=== PATIENT | male | born 1955 | race Caucasian/White ===

== ENCOUNTER 2016-10-19 14:44 | Emergency (ER) | payer BC ==
[~2016-10-19] VITALS: Ht 180.3 cm; Wt 80.7 kg
[~2016-10-19 14:44] MED LIST: ESOM40CA
--- NOTE | 2016-10-19 14:52 | NUR ---
IV ACCESSED TO RAC 18. BLOOD SAMPLE SENT TO LAB
--- NOTE | 2016-10-19 14:52 | NUR ---
MD BOND AT [facility]
--- NOTE | 2016-10-19 14:55 | NUR ---
PRESENTS SELF TO ED FOR ACUTE PALPITATION WITH CHEST PRESSURE; 10 X 1HOUR. PATIENT IS AAO3. APPEARS IN NO ACUTE DISTRESS, RESPIRATION EVEN AND UNLABORED. AFEBRILE. GOWNED PT AND CONNECTED TO TELE MONITOR
[2016-10-19] MEDS ORDERED: Magnesium 1GM/D5W 100ML PREMIX 200 ML IV ONE ×2 (14:58)
[2016-10-19] MEDS ORDERED: IV NS 0.9% 1,000 ML BAG IV ONE (15:00)
[2016-10-19 15:14] LABS: BASOPHILS # (AUTO) 0.1 /CMM (0.0-0.2); BASOPHILS % (AUTO) 1.6 % (0.0-2.0); EOSINOPHILS # (AUTO) 0.1 /CMM (0.0-0.7); EOSINOPHILS % (AUTO) 0.9 % (0.0-6.0); HEMATOCRIT 39 % (39-51); HEMOGLOBIN 12.8 g/dL (13.5-17.5); LYMPHOCYTES % (AUTO) 34.2 % (20.0-44.0); MEAN CORPUSCULAR HEMOGLOBIN 30 PG (26.0-33.0); MEAN CORPUSCULAR HGB CONC 33 g/dl (31.0-36.0); MEAN CORPUSCULAR VOLUME 90 fL (80-96); MONOCYTES # (AUTO) 0.4 /CMM (0.1-1.30); MONOCYTES % (AUTO) 6.3 % (2.0-12.0); NEUTROPHILS # (AUTO) 3.2 /CMM (1.8-8.9); PLATELET COUNT (AUTO) 174 /CMM (150-450); RDW COEFFICIENT OF VARIATION 12.2 (11.5-15.0); RED BLOOD CELL COUNT(AUTO) 4.29 MIL/uL (4.5-6.0); WHITE BLOOD COUNT (AUTO) 5.8 K/uL (4.3-11.0)
[2016-10-19] MEDS ORDERED: ASPIRIN 81 MG TAB.CHEW ONE (15:23)
[2016-10-19 15:25] LABS: CALCIUM, SERUM 9.1 mg/dL (8.5-10.1); CARBON DIOXIDE 29 mmol/L (21-32); CHLORIDE 106 mmol/L (98-107); CREATININE 1.2 mg/dL (0.6-1.3); GLUCOSE 98 mg/dL (74-106); POTASSIUM 3.7 mmol/L (3.5-5.1); SODIUM SERUM 144 mmol/L (136-145); UREA NITROGEN, BLOOD 20 mg/dL (7-18)
[2016-10-19 15:27] LABS: INR 1.08 (0.87-1.13); PROTHROMBIN TIME 11.2 SECS (9.5-12.7)
[2016-10-19] MEDS ORDERED: ASPIRIN 81 MG TAB.CHEW PO ONE (15:30)
[2016-10-19 15:31] LABS: ALANINE AMINOTRANSFERASE 23 U/L (12-78); ALBUMIN 4.3 g/dL (3.4-5.0); ALKALINE PHOSPHATASE 55 U/L (46-116); ASPARTATE AMINOTRANSFERASE 20 U/L (15-37); BILIRUBIN,DIRECT 0.1 mg/dL (0.0-0.2); BILIRUBIN,TOTAL 0.7 mg/dL (0.2-1.0); TOTAL PROTEIN, SERUM 7.8 g/dL (6.4-8.2); TROPONIN I < 0.017 ng/mL (0.00-0.056)
[2016-10-19] MEDS ORDERED: DILTIAZEM HCL 25 MG IV ONE (15:46)
[2016-10-19] MEDS ORDERED: ESOM40CA PO (15:48)
[2016-10-19] MEDS ORDERED: ASPI81TA2 PO (15:48)
[2016-10-19] MEDS ORDERED: AZIT250T6 PO (15:48)
[2016-10-19] MEDS ORDERED: LIOT25TA9 PO (15:48)
[2016-10-19] MEDS ORDERED: TEST5GEL2 TD (15:48)
[2016-10-19] MEDS ORDERED: GABA-534 PO (15:49)
[2016-10-19] MEDS ORDERED: DILTIAZEM HCL 25 MG IV IV ONE (16:00)
--- NOTE | 2016-10-19 16:24 | NUR ---
DR GARDUNO ON THE PHONE WITH DR WONG.
--- NOTE | 2016-10-19 16:35 | NUR ---
MD BOND AT BEDSIDE DISCUSSING PLAN OF CARE
[2016-10-19 18:22] VITALS: BP 135/91
--- NOTE | 2016-10-19 18:22 | NUR ---
Patient discharged to home in stable condition. Written and verbal after care instructions given. Patient verbalizes understanding of instruction.IV removed. Catheter intact and site benign. Pressure and 4x4 applied to site. No bleeding noted.
== END 2016-10-19 18:23 | disposition home or self-care (01) ==
LOC: ER 14:46
DX: I48.91 Unspecified atrial fibrillation (principal); K21.9 Gastro-esophageal reflux disease without esophagitis
CPT/HCPCS: 36415; 80048; 80076; 84484 ×2; 85025; 85730; 93005 ×2; 96365; 96374; 99291; A4606; J3475; J3490; J7030; Z7610

== ENCOUNTER 2017-04-23 15:22 | Inpatient (IN) | payer BC ==
[~2017-04-23] VITALS: Ht 177.8 cm; Wt 78.1 kg
[~2017-04-23 15:22] MED LIST changes: +ASPI-1169 PO; +AZIT250T13 PO; -ESOM40CA; +ESOM40CA PO; +GABA-534 PO; +LIOT25TA9 PO; +TEST5GEL2 TD
--- NOTE | 2017-04-23 15:22 | NUR ---
PT AMBULATORY TO ER BED 10. C/O CHEST PAIN, PALPITATION THAT STARTED WHILE DRIVING X 15 MINS. PT HAS HXC OF A FIB. GOWNED AND PLACED ON MONITOR. AFIB. AWAITING MD GARCIA.
--- NOTE | 2017-04-23 15:40 | NUR ---
IV LINE STARTED BLOOD DRAWN AND SENT TO LAB.
[2017-04-23] MEDS ORDERED: DILTIAZEM HCL 25 MG IV ONE ×3 (15:41→19:56)
[2017-04-23 15:47] LABS: BASOPHILS # (AUTO) 0.1 /CMM (0.0-0.2); MONOCYTES # (AUTO) 0.5 /CMM (0.1-1.30); RDW COEFFICIENT OF VARIATION 12.4 (11.5-15.0); WHITE BLOOD COUNT (AUTO) 8.5 K/uL (4.3-11.0)
[2017-04-23 15:50] LABS: BASOPHILS % (AUTO) 0.6 % (0.0-2.0); EOSINOPHILS % (AUTO) 0.4 % (0.0-6.0); HEMATOCRIT 37 % (39-51); HEMOGLOBIN 12.7 g/dL (13.5-17.5); LYMPHOCYTES # (AUTO) 1.6 /CMM (0.8-4.8); LYMPHOCYTES % (AUTO) 19.1 % (20.0-44.0); MEAN CORPUSCULAR HEMOGLOBIN 30 PG (26.0-33.0); MEAN CORPUSCULAR HGB CONC 34 g/dl (31.0-36.0); MEAN CORPUSCULAR VOLUME 88 fL (80-96); MONOCYTES % (AUTO) 6.4 % (2.0-12.0); NEUTROPHILS # (AUTO) 6.3 /CMM (1.8-8.9); NEUTROPHILS % (AUTO) 73.5 % (43.0-81.0); PLATELET COUNT (AUTO) 224 /CMM (150-450); RED BLOOD CELL COUNT(AUTO) 4.22 MIL/uL (4.5-6.0)
--- NOTE | 2017-04-23 15:55 | NUR ---
CALLED DR MARCELO WONG'S ANSWERING SERVICE, LEFT VOICEMAIL.
[2017-04-23 16:00] LABS: INR 1.09 (0.85-1.15)
[2017-04-23] MEDS ORDERED: DILTIAZEM HCL 50 MG IV IV ONE ×4 (16:00→20:00)
--- NOTE | 2017-04-23 16:01 | NUR ---
PT REFUSING CXR
[2017-04-23 16:02] LABS: CALCIUM, SERUM 9.6 mg/dL (8.5-10.1); CARBON DIOXIDE 29 mmol/L (21-32); CHLORIDE 105 mmol/L (98-107); CREATININE 1.2 mg/dL (0.6-1.3); GLUCOSE 101 mg/dL (74-106); POTASSIUM 4.6 mmol/L (3.5-5.1); SODIUM SERUM 142 mmol/L (136-145); UREA NITROGEN, BLOOD 20 mg/dL (7-18)
[2017-04-23 16:15] LABS: B-TYPE NATRIURETIC PEPTIDE 82 PG/ML (0-125); TROPONIN I < 0.017 ng/mL (0.00-0.056)
[2017-04-23] MEDS ORDERED: DILTIAZEM HCL 50 MG IV ONE (16:25)
[2017-04-23] MEDS ORDERED: APIXABAN 5 MG TABLET PO STA (17:15)
[2017-04-23] MEDS ORDERED: DILTIAZEM HCL CD 180 MG PO ONE ×2 (17:27→17:30)
[2017-04-23] MEDS ORDERED: ENOXAPARIN SODIUM 60 MG/0.6 ML DISP.SYRIN SQ ONE (19:00)
[2017-04-23] MEDS ORDERED: ENOXAPARIN SODIUM 80 MG/0.8 ML DISP.SYRIN SQ ONE (19:10)
--- NOTE | 2017-04-23 19:20 | NUR ---
CALLED [email or web address] RISK CONSULTING TREASURY DIRECTOR WAS PAGED.
[2017-04-23] MEDS ORDERED: LISI10TA5 PO (19:26)
[2017-04-23] MEDS ORDERED: DEXL60CA3 PO (19:26)
--- NOTE | 2017-04-23 20:50 | NUR ---
RN OPEN NOTES RECEIVED PATIENT FROM ER VIA [facility] WITH FAMILY AT BEDSIDE. A/O X4. NO SIGNS OF DISTRESS OR DISCOMFORT. BREATHING EVEN AND UNLABORED. ATTACHED PATIENT TO TELE MONITOR WITH AFIB 98 NOTED. IV ACCESS IN LAC, PATENT AND INTACT, NO SIGNS OF REDNESS OR INFILTRATION. ORIENTED PATIENT TO UNIT AND ROOM. BED IN LOW LOCKED POSITION WITH SIDE RAILS X2. CALL LIGHT WITHIN REACH. WILL CONTINUE TO MONITOR.
[2017-04-23 21:00] VITALS: BP 121/79
[2017-04-23] MEDS ORDERED: IV NS 0.9% 1,000 ML IV PRN (21:06)
[2017-04-23] MEDS ORDERED: MAG HYDROX/AL HYDROX/SIMETH 30 ML UDC PO PRN (21:30)
[2017-04-23] MEDS ORDERED: ONDANSETRON HCL/PF 4 MG/2 ML VIAL IVP PRN (21:30)
[2017-04-23] MEDS ORDERED: ACETAMINOPHEN 325 MG TABLET PO PRN (21:30)
[2017-04-23] MEDS ORDERED: HYDROCODONE/APAP 5/325MG 1 EACH TABLET PO PRN (21:30)
[2017-04-23] MEDS ORDERED: Z GUARD REMEDY 2 OZ OINT TP PRN (21:30)
[2017-04-23] MEDS: ENOXAPARIN SODIUM 80 MG/0.8 ML DISP.SYRIN SQ SCH (21:30)
[2017-04-23] MEDS ORDERED: MAGNESIUM HYDROXIDE 30 ML UDC PO PRN (21:30)
[2017-04-23 22:00] VITALS: BP 121/79
[2017-04-23] MEDS ORDERED: ZOLPIDEM TARTRATE 5 MG TABLET PO ONE (23:00)
--- NOTE | 2017-04-23 23:07 | NUR ---
RN NOTES ADMINISTERED AMBIEN 5MG AT PATIENT REQUEST FOR INSOMNIA. WILL CONTINUE TO MONITOR.
[2017-04-24] VITALS: BP 94/55
[2017-04-24 00:10] VITALS: BP 121/79
[2017-04-24 04:00] VITALS: BP_SYST 100; BP_SYST 96; BP_DIAS 58; BP_DIAS 61
--- NOTE | 2017-04-24 06:38 | NUR ---
RN CLOSING NOTES PATIENT RESTING IN BED, EASILY AROUSABLE. A/O X4. NO SIGNS OF DISTRESS OR DISCOMFORT. BREATHING EVEN AND UNLABORED. ON TELE MONITOR WITH SB 50 NOTED. IV ACCESS IN LAC WITH NS INFUSING, PATENT AND INTACT, NO SIGNS OF REDNESS OR INFILTRATION. ALL NEEDS MET. NO SIGNIFICANT CHANGES THROUGH THE NIGHT. BED IN LOW LOCKED POSITION WITH SIDE RAILS X2. CALL LIGHT WITHIN REACH. WILL ENDORSE TO AM SHIFT FOR NIKKY.
[2017-04-24 07:16] LABS: BASOPHILS % (AUTO) 0.4 % (0.0-2.0); EOSINOPHILS # (AUTO) 0.1 /CMM (0.0-0.7); EOSINOPHILS % (AUTO) 2.3 % (0.0-6.0); HEMATOCRIT 35 % (39-51); HEMOGLOBIN 12.2 g/dL (13.5-17.5); LYMPHOCYTES # (AUTO) 1.9 /CMM (0.8-4.8); LYMPHOCYTES % (AUTO) 47.3 % (20.0-44.0); MEAN CORPUSCULAR HEMOGLOBIN 32 PG (26.0-33.0); MEAN CORPUSCULAR HGB CONC 35 g/dl (31.0-36.0); MEAN CORPUSCULAR VOLUME 90 fL (80-96); MONOCYTES # (AUTO) 0.4 /CMM (0.1-1.30); MONOCYTES % (AUTO) 10.4 % (2.0-12.0); NEUTROPHILS # (AUTO) 1.6 /CMM (1.8-8.9); NEUTROPHILS % (AUTO) 39.6 % (43.0-81.0); PLATELET COUNT (AUTO) 189 /CMM (150-450); RDW COEFFICIENT OF VARIATION 13.5 (11.5-15.0); RED BLOOD CELL COUNT(AUTO) 3.84 MIL/uL (4.5-6.0)
[2017-04-24] MEDS ORDERED: LIOTHYRONINE SODIUM (25 MCG) 25 MCG TABLET PO SCH (07:30)
[2017-04-24 07:48] LABS: CALCIUM, SERUM 8.5 mg/dL (8.5-10.1); CREATININE 1.1 mg/dL (0.6-1.3); MAGNESIUM 2.2 mg/dL (1.8-2.4); PHOSPHORUS 3.9 mg/dL (2.5-4.9); POTASSIUM 4.2 mmol/L (3.5-5.1); THYROID STIMULATING HORMONE 0.749 uIU/mL (0.358-3.74)
--- NOTE | 2017-04-24 07:59 | NUR ---
TIME STUDY OBSERVER OPENING NOTES. PT RECEIVED A&0X3 RESTING IN BED. TELE SR 60. PT TOLERATING ROOM AIR WITHOUT SOB AND DENIES PAIN. PT WITH IVC AT L AC G#18 INTACT AND OPERATIONAL WITH NS75ML/HR. ENDORSED PT NPO, CONFIRMED DIET OK PER MD WALDEN. PT BED IN LOWEST LOCKED POSITION WITH HNADRAILSX2 AND CALL DAVIS WITHIN REACH. PT BRIEFED ON TODAY'S POC AND IS WITHOUT CONCERN OR COMPLAINT AT THIS TIME.
[2017-04-24 08:00] VITALS: BP 95/49
[2017-04-24] MEDS ORDERED: IV NS 0.9% 1,000 ML IV PRN (08:31)
[2017-04-24] MEDS: ENOXAPARIN SODIUM 80 MG/0.8 ML DISP.SYRIN SQ SCH (08:32)
[2017-04-24] MEDS ORDERED: LISINOPRIL (10MG) 10 MG TABLET PO SCH (09:00)
[2017-04-24] MEDS ORDERED: ASPIRIN 81 MG TAB.CHEW PO SCH (09:00)
[2017-04-24 11:32] VITALS: BP 121/65
--- NOTE | 2017-04-24 12:30 | NUR ---
MSRN D/C NOTES. PT PREPARED FOR D/C PER MD, PT TOLERATING ROOM AIR WITHOUT DISTRESS AND DENIES PAIN. PT IVC REMOVED AND NAD AT SITE. PT WITH ALL BELONGINGS AND DOCUMENT SIGNED. PT BRIEFED ON SOH D/C PACKET, EMERGENCY S/S AND IS VERBALIZING UNDERSTANDING, RESOURCES AND INTENT TO FOLLOW POC. PT REPORTING HAVING HAD A LONG CONVERSATION JUST PRIOR WITH MD MILLER.ALL NURSE DUTIES ATTENDED TO. PT IS WITHOUT CONCERN OR COMPLAINT AND IS GRATEFUL FOR CARE. PT AMBULATORY EXIT.
[2017-04-25] MEDS ORDERED: PANTOPRAZOLE 40 MG TABLET.DR PO SCH (07:30)
== END 2017-04-24 12:25 | disposition home or self-care (01) | DRG 308 ==
LOC: ER 15:23 → TELE 20:21 → MED 04-24 09:25
PROVIDERS: ADMIT Nurse Practitioner Acute Care; ATTEND Nurse Practitioner Acute Care
DX: I48.0 Paroxysmal atrial fibrillation (principal); N17.0 Acute kidney failure with tubular necrosis; D63.8 Anemia in other chronic diseases classified elsewhere; E03.9 Hypothyroidism, unspecified; K21.9 Gastro-esophageal reflux disease without esophagitis; M47.896 Other spondylosis, lumbar region; Z80.9 Family history of malignant neoplasm, unspecified; Z82.49 Family history of ischemic heart disease and other diseases of the circulatory system; G89.29 Other chronic pain; K66.0 Peritoneal adhesions (postprocedural) (postinfection); I70.8 Atherosclerosis of other arteries; I10 Essential (primary) hypertension; Z79.82 Long term (current) use of aspirin
CPT/HCPCS: 36415; 80048-TC; 80061-TC; 83735-TC; 83880; 84100-TC; 84443-TC; 84484-TC; 85025-TC; 85730-TC; 87081-TC; A4606; J1650; J3490; J7030; Z7610

== ENCOUNTER 2017-12-24 15:31 | Emergency (ER) | payer BC ==
[~2017-12-24] VITALS: Ht 177.8 cm; Wt 79.8 kg
[~2017-12-24 15:31] MED LIST changes: -AZIT250T13 PO; +DEXL60CA3 PO; -ESOM40CA PO; -GABA-534 PO; +LISI10TA5 PO
[2017-12-24 15:54] VITALS: BP 138/98
--- NOTE | 2017-12-24 15:57 | NUR ---
Pt states "Had AF earlier today took Flecainide but didnt wait for it to take effect I got nervous so I came" Denies any CP/SOB or any s/s EKG NSR. Pt for discharge ACI given-verbalized understanding. Home ambulatory Stable
[2018-01-15] MEDS ORDERED: DILT180C66 PO (10:41)
== END 2017-12-24 15:59 | disposition home or self-care (01) ==
LOC: ER 15:33
DX: I48.91 Unspecified atrial fibrillation (principal); K21.9 Gastro-esophageal reflux disease without esophagitis; F10.10 Alcohol abuse, uncomplicated; Y90.9 Presence of alcohol in blood, level not specified; Z79.82 Long term (current) use of aspirin
CPT/HCPCS: 99283; A4606; Z7610

== ENCOUNTER 2019-11-20 12:19 | Emergency (ER) | payer BC ==
[~2019-11-20] VITALS: Ht 177.8 cm; Wt 79.4 kg
[~2019-11-20 12:19] MED LIST changes: +DILT180C66 PO; +LIOT25TA13 PO; -LIOT25TA9 PO
--- NOTE | 2019-11-20 13:10 | NUR ---
PATIENT TAKEN TO CT.
--- NOTE | 2019-11-20 13:50 | NUR ---
PATIENT A/OX4, AMBULATORY WITH STEADY GAIT. NO DISTRESS NOTED. Patient discharged to home in stable condition. Written and verbal after care instructions given. Patient verbalizes understanding of instruction.
[2019-11-20 13:51] VITALS: BP 160/96
== END 2019-11-20 13:52 | disposition home or self-care (01) ==
LOC: ER 12:24
DX: S06.0X0A Concussion without loss of consciousness, initial encounter (principal); I10 Essential (primary) hypertension; I48.91 Unspecified atrial fibrillation; K21.9 Gastro-esophageal reflux disease without esophagitis; Z98.890 Other specified postprocedural states; Z79.899 Other long term (current) drug therapy; Z79.82 Long term (current) use of aspirin; W22.8XXA Striking against or struck by other objects, initial encounter; Y93.89 Activity, other specified; Y92.89 Other specified places as the place of occurrence of the external cause; Y99.8 Other external cause status
CPT/HCPCS: 70450-TC

== ENCOUNTER → 2020-11-17 | Emergency (ER) | payer BC ==
[~2020-11-17] VITALS: Ht 180.3 cm; Wt 77.1 kg
[~2020-11-17] MED LIST changes: +HYDROCODONE/APAP 5/325MG TABLET ONE; +IOHEXOL-350 100 ML VIAL IV ONE; +IV NS 0.9% 250 ML IV ONE; +LISI10TA29 PO; -LISI10TA5 PO
--- NOTE | 2020-11-17 19:20 | NUR ---
PATIENT BIBS C/O CHEST PAIN X3 DAYS. HX OF AFIB NOV 04 THEN CALF PAIN WHICH SUBSIDED NOW ON GOING CHEST PAIN 5/10 ACCOMPANIED BY N/V. 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 PATIENT AAO X 4, BREATHING EVEN AND UNLABORED. PATIENT WAS SEEN AND EXAMINED BY DR BARTH. PT ATTACHED TO MONITOR AND PULSE OX. WILL CONTINUE TO MONITOR AND CAARY OUT MD ORDERS.
[2020-11-17 19:58] LABS: BASOPHILS % (AUTO) 0.3 % (0.0-2.0); EOSINOPHILS % (AUTO) 1.1 % (0.0-6.0); HEMATOCRIT 36 % (39-51); HEMOGLOBIN 12.2 g/dL (13.5-17.5); MEAN CORPUSCULAR HGB CONC 34 g/dl (31.0-36.0); MEAN CORPUSCULAR VOLUME 93 fL (80-96); MONOCYTES # (AUTO) 0.5 K/uL (0.1-1.30); MONOCYTES % (AUTO) 9.1 % (2.0-12.0); NEUTROPHILS # (AUTO) 3.2 K/uL (1.8-8.9); NEUTROPHILS % (AUTO) 55.5 % (43.0-81.0); PLATELET COUNT (AUTO) 175 K/uL (150-450); RED BLOOD CELL COUNT(AUTO) 3.91 MIL/uL (4.5-6.0); WHITE BLOOD COUNT (AUTO) 5.8 K/uL (4.3-11.0)
--- NOTE | 2020-11-17 20:05 | NUR ---
CXR DONE AT BEDSIDE.
[2020-11-17 20:11] LABS: CALCIUM, SERUM 8.6 mg/dL (8.5-10.1); CARBON DIOXIDE 30 mmol/L (21-32); CHLORIDE 106 mmol/L (98-107); CREATININE 1.1 mg/dL (0.6-1.3); GLUCOSE 91 mg/dL (74-106); POTASSIUM 4.1 mmol/L (3.5-5.1); SODIUM SERUM 142 mmol/L (136-145); UREA NITROGEN, BLOOD 23 mg/dL (7-18)
--- NOTE | 2020-11-17 20:28 | NUR ---
PT COMPLAINING OF A CONSTANT 6/[address] BARTH WAS NOTIDIED, ORDER RECEIVED FOR NORCO 5/325 MG PO X 1.
[2020-11-17] MEDS: HYDROCODONE/APAP 5/325MG TABLET PO ONE (20:29)
--- NOTE | 2020-11-17 21:12 | NUR ---
PER DR BARTH, BLOOD DRAW FOR TROPONIN SHOULD BE 3 HOURS AFTER PREVIOUS ONE WHICH WAS TAKEN 1953.CHALINO FROM LAB AWARE
--- NOTE | 2020-11-17 21:50 | NUR ---
PATIENT TAKEN TO RADIOLOGY FOR CHEST CT
--- NOTE | 2020-11-17 22:00 | NUR ---
PATIENT BACK TO ED BED 10
--- NOTE | 2020-11-17 23:30 | NUR ---
Patient discharged to home in stable condition. Written and verbal after care instructions given. Patient verbalizes understanding of instruction. Patient ambulatory with a steady gait.
[2020-11-18 01:19] VITALS: BP 135/92
== END ==
LOC: ER 18:40
DX: R07.89 Other chest pain (principal); I48.91 Unspecified atrial fibrillation; R00.1 Bradycardia, unspecified; I10 Essential (primary) hypertension; K21.9 Gastro-esophageal reflux disease without esophagitis; Z98.890 Other specified postprocedural states; Z85.828 Personal history of other malignant neoplasm of skin; Z79.82 Long term (current) use of aspirin; Z79.899 Other long term (current) drug therapy
CPT/HCPCS: 36415; 71045; 71275; 80048; 84484 ×2; 85025; 85378; 93005; 99285; J7050; Q9967

== ENCOUNTER → 2024-12-26 | Emergency (ER) | payer BC ==
[~2024-12-26] VITALS: Ht 177.8 cm; Wt 78.0 kg
[~2024-12-26] MED LIST changes: -HYDROCODONE/APAP 5/325MG TABLET ONE; -IOHEXOL-350 100 ML VIAL IV ONE; -IV NS 0.9% 250 ML IV ONE
[2024-12-26 14:38] VITALS: BP 120/74; TEMP 97.6; O2SAT 97
== END | disposition left against medical advice (07) ==
LOC: ER 14:24
DX: R10.9 Unspecified abdominal pain (principal)